=== PATIENT | male | born 1965 | race Caucasian/White ===

== ENCOUNTER → 2023-07-23 07:21 | Outpatient (REF) | payer BC, SELFPAY | LOC: RCS 07:21 | PROVIDERS: ATTENDING PHYSICIAN Internal Medicine Cardiovascular Disease; FAMILY PHYSICIAN Family Medicine | DX: I10 Essential (primary) hypertension (principal) | CPT/HCPCS: 93308; 93321; 93325 ==

== ENCOUNTER → 2024-06-14 14:48 | Outpatient (REF) | payer BC, SELFPAY | LOC: RCS 14:48 | PROVIDERS: ATTENDING PHYSICIAN Internal Medicine Cardiovascular Disease; FAMILY PHYSICIAN Family Medicine | DX: R00.2 Palpitations (principal) | CPT/HCPCS: 93306 ==